=== PATIENT | male | born 1940 | race Caucasian/White ===

== ENCOUNTER → 2017-05-29 | Outpatient (REF) | payer MEDICARE ==
[2017-05-29 13:49] LABS: RETIC HEMOGLOBIN EQUIVALENT 31.9 pg (24-36); RETICULOCYTE # 70.5 10^9/L (17-77); RETICULOCYTE % 1.9 % (0.5-1.5)
[2017-05-29 13:58] LABS: HEMATOCRIT 33.4 % (42.0-52.0)
[2017-05-29 13:59] LABS: FERRITIN 509 NG/ML (26-388); IRON (FE) 40 UG/DL (65-175)
[2017-05-29 14:00] LABS: SLIDE REVIEW Report; SOURCE PERIPHERAL SMEAR
[2017-05-29 14:21] LABS: HEPATITIS B SURFACE ANTIGEN NEGATIVE (NEGATIVE); PERCENT SATURATION 18.1 % (19.7-50.0); TOTAL IRON BINDING CAPACITY 221 UG/DL (250-450)
[2017-05-29 14:46] LABS: HEPATITIS B CORE ANTIBODY IGM NEGATIVE (NEGATIVE)
[2017-05-29 16:38] LABS: HEPATITIS C VIRUS ABY INDEX 0.3 INDEX (<0.8)
[2017-06-02 00:07] LABS: SOLUBLE TRANSFERRIN RECEPTOR 30.8 nmol/L (12.2-27.3)
[2017-06-02 00:07] LABS: ANTINUCLEAR ANTIBODIES DIRECT Negative (Negative); EBV AB TO NUCLEAR ANTIGEN >600.0 U/mL (0.0-17.9); EBV VIRAL CAPSID AG IgM <36.0 U/mL (0.0-35.9); HOMOCYST(E)INE SERUM 15.9 umol/L (0.0-15.0); METHYLMALONIC ACID 234 nmol/L (0-378)
[2017-06-02 10:49] LABS: PRETREATED FOLATE FOR RBCFOL 6.8 NG/ML; RBC FOLATE 427.5 NG/ML (280-791)
== END ==
LOC: M LAB REF 13:21
DX: R16.1 Splenomegaly, not elsewhere classified (principal)
CPT/HCPCS: 83550

== ENCOUNTER → 2017-06-08 | Outpatient (REF) | payer MEDICARE ==
[2017-06-08 13:56] LABS: APPEARANCE, URINE HAZY (CLEAR); BACTERIA, URINE AUTO NEGATIVE (NEGATIVE); BILIRUBIN, URINE AUTO NEGATIVE (NEGATIVE); BLOOD, URINE BLOOD NEGATIVE (NEGATIVE); CALCIUM OXALATE CRYSTALS SMALL; COLOR, URINE YELLOW (YELLOW); GLUCOSE, URINE (UA) AUTO NEGATIVE (NEGATIVE); KETONE, URINE AUTO NEGATIVE (NEGATIVE); LEUKOCYTE ESTERASE, URINE AUTO NEGATIVE (NEGATIVE); MUCUS, URINE SMALL (NEGATIVE); NITRITE, URINE AUTO NEGATIVE (NEGATIVE); PROTEIN, URINE AUTO NEGATIVE (NEGATIVE); RBC, URINE AUTO 0 /HPF (0-3); SPECIFIC GRAVITY URINE AUTO 1.021 (1.002-1.035); SQUAMOUS EPITHELIAL CELL UR AU 0 /HPF (0-6); WBC, URINE AUTO 2 /HPF (0-3)
[2017-06-09 10:56] LABS: TOTAL PROTEIN 7.1 GM/DL (6.4-8.2)
[2017-06-09 11:52] LABS: IMMUNOGLOBULIN A 73.4 MG/DL (70-400); IMMUNOGLOBULIN G 1890 MG/DL (681-1648); IMMUNOGLOBULIN M 52.4 MG/DL (40-230)
[2017-06-10 00:06] LABS: FREE KAPPA LIGHT CHAINS SERUM 15.8 mg/L (3.3-19.4); FREE LAMBDA LIGHT CHAINS SERUM 130.4 mg/L (5.7-26.3); KAPPA/LAMBDA RATIO SERUM 0.12 (0.26-1.65)
[2017-06-10 09:56] LABS: ALBUMIN 2.91 GM/DL (3.29-5.55); ALPHA-1-GLOBULIN % 9.8 % (2.9-4.9); ALPHA-2-GLOBULINS 1.04 GM/DL (0.42-0.99); ALPHA-2-GLOBULINS % 14.7 % (7.1-11.8); BETA-1-GLOBULINS 0.39 GM/DL (0.28-0.60); BETA-1-GLOBULINS % 5.5 % (4.7-7.2); BETA-2-GLOBULINS 0.25 GM/DL (0.19-0.55); BETA-2-GLOBULINS % 3.5 % (3.2-6.5); GAMMA GLOBULIN % 25.5 % (11.1-18.8); GAMMA GLOBULINS 1.81 GM/DL (0.65-1.58)
[2017-06-10 10:07] LABS: IMMUNOTYPING SERUM IGG ABNORMAL (NORMAL); IMMUNOTYPING SERUM LAMBDA ABNORMAL (NORMAL)
== END ==
LOC: M LAB REF 12:41
DX: R16.1 Splenomegaly, not elsewhere classified (principal); R16.0 Hepatomegaly, not elsewhere classified; D64.9 Anemia, unspecified
CPT/HCPCS: 84165

== ENCOUNTER → 2017-07-23 | Outpatient (REF) | payer MEDICARE ==
[2017-07-23 14:06] LABS: FERRITIN 951 NG/ML (26-388); IRON (FE) 38 UG/DL (65-175); TOTAL IRON BINDING CAPACITY 173 UG/DL (250-450)
== END ==
LOC: M LAB REF 13:22
DX: R16.1 Splenomegaly, not elsewhere classified (principal); R16.0 Hepatomegaly, not elsewhere classified; D64.9 Anemia, unspecified
CPT/HCPCS: 83550

== ENCOUNTER → 2017-09-08 | Outpatient (CLI) | payer MEDICARE ==
[2017-09-09 12:00] LABS: HEPATITIS B SURFACE ANTIBODY NEGATIVE (POSITIVE)
[2017-09-09 12:17] LABS: HEPATITIS A ANTIBODY IGM NEGATIVE (NEGATIVE)
[2017-09-10 00:09] LABS: ANTI-MITOCHONDRIAL ANTIBODY 18.5 Units (0.0-20.0); ANTINUCLEAR ANTIBODIES DIRECT Negative (Negative); HEPATITIS A IgG TOTAL Negative (Negative); LIVER-KIDNEY MICROSOMAL ABY 7.4 Units (0.0-20.0)
[2017-09-10 00:09] LABS: ANTI-SMOOTH MUSCLE ANTIBODY 67 Units (0-19)
== END ==
LOC: M RAD 07:09
DX: R94.5 Abnormal results of liver function studies (principal); K76.0 Fatty (change of) liver, not elsewhere classified; N28.1 Cyst of kidney, acquired; R16.0 Hepatomegaly, not elsewhere classified; K82.8 Other specified diseases of gallbladder
CPT/HCPCS: 76705

== ENCOUNTER → 2018-04-01 | Outpatient (CLI) | payer MEDICARE ==
[~2018-04-01] MED LIST: ASPI1TAB PO; GASTROGRAFIN SOLUTION 30ML (Q9963) As Ordered ONE; IRON27TA2 PO; ISOVUE-370 76% 100ML VIAL (Q9967) As Ordered ONE; LEVO100T5 OR; METO1TAB87 OR; STOO100C PO; VITA500064 PO
--- NOTE | 2018-04-01 16:53 | REP ---
CT Head without and with contrast HISTORY: Non-Hodgkins lymphoma CONTRAST: Isovue 370 100 ml COMPARISON: None Areas of decreased attenuation are present in the periventricular white matter. This represents small-vessel ischemic disease. There is no intraparenchymal hemorrhage or midline shift. The ventricular system and cortical sulci are dilated consistent with minimal volume loss. There is no extra cerebral collection. Small 4 mm meningioma is present arising from the right side of the anterior inferior falx. The visualized sinuses are clear. Impression: 1. Small vessel ischemic disease. 2. Minimal volume loss. 3. There is a small 4 mm anterior cranial fossa meningioma. Electronically Signed by Jorge Luis Neely MD 04/01/2018 04:44 P
--- NOTE | 2018-04-01 16:55 | REP ---
CT of the chest with IV contrast for non-Hodgkin's lymphoma: There are no comparison studies. There is no mediastinal, hilar or axillary lymph node enlargement. There is atelectasis in the lower lobes bilaterally. No lung masses or nodules are identified. There are no pleural effusions. There are old healed fractures of the right first second and third ribs. There is deformity of the right fourth rib which could be post-traumatic or congenital. There is focal pleural thickening adjacent to the rib fractures, likely fibrosis. Thoracic aorta is unremarkable. Cardiac size is normal. There is calcified atheroma in the coronary arteries. There is no pericardial effusion. No lytic, blastic or destructive skeletal changes are identified. There are calcified granulomas in the left hilus. There are calcified granulomas in the spleen. Liver and spleen appear enlarged. Impression: Hepato splenomegaly. No adenopathy. The right rib changes as described, likely post-traumatic. No lung masses or nodules. No pleural effusions. Electronically Signed by Rangel Brownlee MD 04/01/2018 04:46 P
--- NOTE | 2018-04-01 17:01 | REP ---
CT of the abdomen pelvis with IV and oral contrast dual phase imaging: Imaging of the abdomen pelvis is performed during the arterial phase of enhancement. Scanning is repeated through the liver and spleen and during the equilibrium phase of enhancement. There is hepato splenomegaly. There are multiple splenic calcified granulomas. There are no focal splenic or hepatic masses. The gallbladder and pancreas are unremarkable. The adrenals are unremarkable. There are several small Bosniak type 1 simple cysts in the kidneys bilaterally. There are no renal solid masses or hydronephrosis. There are parapelvic cysts in the left kidney. There is abdominal aortic aneurysm with an endovascular stent. No evidence of stent leakage. No periaortic hematoma. The bowel and mesentery are unremarkable. There is no mesenteric or retroperitoneal adenopathy. Pelvis: There is no pelvic adenopathy or ascites. The bladder is unremarkable. There are no lytic, blastic or destructive skeletal changes. There is degenerative disc disease in the lumbar spine L5 S1. Impression: No adenopathy or ascites. Hepato splenomegaly. Splenic calcified granulomas. Abdominal aortic aneurysm with an endovascular stent. Electronically Signed by Rangel Brownlee MD 04/01/2018 04:53 P
--- NOTE | 2018-04-01 18:17 | REP ---
CT NECK WITH CONTRAST: HISTORY: Non-Hodgkin lymphoma. CONTRAST: Isovue-370 100 mL. Calcifications are present in the tonsils. This is secondary to previous inflammatory disease. The naso-, marilyn-, and hypopharynx, larynx, and subglottic trachea are otherwise normal in appearance. The salivary and thyroid glands are normal in size and density. Small lymph nodes less than 1 cm in size are present in the internal jugular chains, posterior triangles and submandibular areas. Atherosclerotic calcification is present at the carotid bifurcations. Degenerative change is present in the cervical spine. The lung apices are clear. The visualized sinuses are clear. IMPRESSION:There is no neck mass or adenopathy. Electronically Signed by Jorge Luis Neely MD 04/02/2018 08:22 A
== END ==
LOC: M RAD 14:31
PROVIDERS: ATTEND Internal Medicine Medical Oncology
DX: C85.90 Non-Hodgkin lymphoma, unspecified, unspecified site (principal); R16.1 Splenomegaly, not elsewhere classified; D72.89 Other specified disorders of white blood cells; N28.1 Cyst of kidney, acquired; Z95.828 Presence of other vascular implants and grafts
CPT/HCPCS: 70470; 70491; 71260; 74177; Q9963; Q9967

== ENCOUNTER → 2018-05-07 | Outpatient (REF) | payer MEDICARE ==
[~2018-05-07] MED LIST changes: -ASPI1TAB PO; +ASPI81TA26 PO; -GASTROGRAFIN SOLUTION 30ML (Q9963) As Ordered ONE; -ISOVUE-370 76% 100ML VIAL (Q9967) As Ordered ONE
== END ==
LOC: M SFHCPLAZ 09:58
PROVIDERS: ATTEND Dermatology
DX: L57.0 Actinic keratosis (principal); L83 Acanthosis nigricans

== ENCOUNTER → 2018-06-29 | Outpatient (REF) | payer MEDICARE ==
[~2018-06-29] MED LIST changes: +LASI40TA9 PO
== END ==
LOC: M SFHCPLAZ 20:11
PROVIDERS: ATTEND Dermatology
DX: L85.9 Epidermal thickening, unspecified (principal); L90.5 Scar conditions and fibrosis of skin
CPT/HCPCS: 11602; 11900; 13101; 88305; J3301

== ENCOUNTER 2018-08-26 10:45 | Observation (INO) | payer MEDICARE ==
[~2018-08-26] VITALS: Ht 188 cm; Wt 93.4 kg
[~2018-08-26 10:45] MED LIST changes: -LEVO100T5 OR; +LEVO100T5 PO; +MM S100C PO; -STOO100C PO
[2018-08-26 11:42] LABS: HEMATOCRIT 38.2 % (42.0-52.0); HEMOGLOBIN 12.2 g/dl (13.5-17.5); MEAN CORPUSCULAR HEMOGLOBIN 29.7 pg (27.0-33.0); MEAN CORPUSCULAR HGB CONC 31.9 g/dl (32.0-36.5); MEAN CORPUSCULAR VOLUME 92.9 fl (80.0-96.0); PLATELET COUNT, AUTOMATED 144 10^3/uL (150-450); RED BLOOD COUNT 4.11 10^6/uL (4.30-6.10); WHITE BLOOD COUNT 5.5 10^3/uL (4.0-10.0)
--- NOTE | 2018-08-26 11:50 | REP ---
CT BRAIN WITHOUT CONTRAST: HISTORY: Altered mental status. COMPARISON BRAIN CT STUDY: April 01, 2018. This prior study showed a small enhancing 4 mm meningioma in the base of the falx on the right side in the anterior cranial fossa. CT FINDINGS: Preliminary digital payroll accounting manager radiograph is unremarkable. Bone window settings show an intact calvarium. Visualized paranasal sinuses are clear. Heavy vascular calcifications again seen in the distal carotid arteries and to some degree in the distal vertebral circulation, as before. The previously noted 4 mm right anterior fossa meningioma is barely visualized on this noncontrast study. There is no evidence that it has enlarged. There is diffuse cerebral atrophy. There is no evidence of intracranial hemorrhage. No extra-axial fluid collection is seen. No mass, infarct, or midline shift is observed. IMPRESSION: Diffuse atrophy and vascular calcification, unchanged. The previously identified 4 mm falx meningioma in the right anterior cranial fossa is barely visualized today. It does not appear to have changed. Electronically Signed by Tye Dillard MD 08/26/2018 05:04 P
--- NOTE | 2018-08-26 11:51 | REP ---
PORTABLE CHEST X-RAY: SINGLE VIEW. HISTORY: Altered mental status. COMPARISON STUDY: July 02, 2017 FINDINGS: EKG monitoring electrodes overlie the chest. There is a granulomatous calcification in the left lung. There is chronic pleural thickening in the right upper lung zone. This is unchanged. The lung bases are clear. No acute infiltrate is seen. Heart is not enlarged. Median sternotomy wires and mediastinal clips are noted. IMPRESSION: No active cardiopulmonary disease. Prior sternotomy. Electronically Signed by Tye Dillard MD 08/26/2018 05:04 P
[2018-08-26 12:10] LABS: ALBUMIN 2.4 GM/DL (3.2-5.2); BILIRUBIN,DIRECT 0.1 MG/DL (0.0-0.2); BILIRUBIN,TOTAL 0.2 MG/DL (0.2-1.0); CALCIUM LEVEL 8.1 MG/DL (8.8-10.2); CK-MB VALUE MASS 2.5 NG/ML (<3.6); CREATININE FOR GFR 1.24 MG/DL (0.70-1.30); GLOMERULAR FILTRATION RATE 59.9 (>42); MB/CK RELATIVE INDEX 4.46 (< OR =4); POTASSIUM SERUM 4.9 MEQ/L (3.5-5.1); THYROID STIMULATING HORMONE 1.54 uIU/ML (0.358-3.740); TOTAL PROTEIN 7.5 GM/DL (6.4-8.2); TROPONIN I 0.13 NG/ML (< 0.10)
[2018-08-26 12:35] LABS: ATYPICAL LYMPH 2 % (0-5); EOSINOPHILS 1 % (0-5); LYMPHOCYTES 16 % (16-52); MONOCYTES 4 % (0-8); NEUTROPHILS 76 % (35-75); PLATELET ESTIMATE DECREASED (NORMAL)
[2018-08-26 12:38] LABS: ANISOCYTOSIS 1+
[2018-08-26 12:39] LABS: OVALOCYTES 1+; POIKILOCYTOSIS 1+
[2018-08-26] MEDS ORDERED: NS 1,000 ML IV SCH (15:30)
[2018-08-26] MEDS ORDERED: QC A650T3 PO (16:34)
--- NOTE | 2018-08-26 19:10 | HPEPDOC ---
General Date of Admission 08/26/2018 Date of Service: Aug 26, 2018 Chief Complaint The patient is a 78-year-old male admitted with a reason for visit of General Illness. Source: Patient, Family, Old records Exam Limitations: Hard of hearing, Mild cognitive slowing Timing/Duration: Changing over time Associated Symptoms: Loss of appetite, Nausea, Weakness, Dizziness, Mechanical fall History of Present Illness This is a 78-year-old male who carries a diagnosis of non-Hodgkin's lymphoma. He last finished about of chemotherapy. 6 weeks ago. He is on maintenance therapy with Rituxan. Over the past week he has noted remarkable fatigue. He's also been dizzy. Reports a loss of appetite and queasiness but no vomiting. He's had overall body aches. He describes himself as being so fatigued that he's been sleeping up to 20 hours a day. Family reports him having frequent falls at home. Also note that at times he has been confused. Of interest, patient appears to be more alert and awake upon arrival to the emergency room. Home Medications Scheduled Ferrous Gluconate (Iron) 27 Mg Tab, 27 MG PO QPM, (Reported) Furosemide (Lasix) 40 Mg Tablet, 40 MG PO DAILY, (Reported) Levothyroxine Sodium (Levothyroxine Sodium) 100 Mcg Tab, 100 MCG PO DAILY, (Reported) Scheduled PRN Acetaminophen (Acetaminophen 8 Hour) 650 Mg Tablet.er, 650 MG PO TID PRN for PAIN, (Reported) Allergies Coded Allergies: cortisone (Verified Allergy, Unknown, 05/13/18) Past Medical History Medical History Past medical history is remarkable for non-Hodgkin's lymphoma for which he has undergone chemotherapy and is on maintenance therapy with Rituxan. Hypothyroidism. Abdominal aortic aneurysm for which he is status post endovascular repair. IgG lambda monoclonal gammopathy. History of CVA. Coronary artery disease for which he is status post coronary artery bypass graft surgery. Diverticular disease. Dyslipidemia. Obstructive sleep apnea. It is not clear whether he sleeps with a CPAP mask. History of gallstones. Macular degeneration. Osteoarthritis Iron deficiency/folic acid deficiency anemia Surgical History Surgical: History includes the aforementioned endovascular repair of his abdominal aortic aneurysm, appendectomy, unspecified shoulder surgery, coronary artery bypass graft surgery Family History Significant Family History: Unable to assess Social History * Smoker: pipe (lifelong and current) Alcohol: Denies Drugs: denies Pets in the home: Dog(s), Cat(s) Psychosocial History: No pertinent psych hx A-FIB/CHADSVASC A-FIB History Current/History of A-Fib/PAF?: No Current PO Anticoag Therapy: No Review of Systems Other systems 10 systems review is otherwise negative except as stated in the brief presentation Physical Examination General Exam: Positive: Alert Eye Exam: Positive: PERRLA, Conjunctiva & lids normal ENT Exam: Positive: Atraumatic, Mucous membr. 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) Neck Exam: Positive: Supple Chest Exam: Positive: Clear to auscultation, Normal air movement Heart Exam: Positive: Rate Normal, Regular Rhythm Abdomen Exam: Positive: Normal bowel sounds, Soft Extremity Exam: Positive: Normal pulses Skin Exam: Positive: Nl turgor and temperature Neuro Exam: Positive: Normal Speech, Cranial Nerves 3-12 NL Psych Exam: Positive: Mental status NL, Oriented x 3 Vital Signs Vital Signs Date Time Temp Pulse Resp B/P (MAP) Pulse Ox O2 Delivery O2 Flow Rate FiO2 08/26/18 18:44 96.7 76 18 127/67 (87) 98 08/26/18 10:47 Room Air Laboratory Data Labs 24H Laboratory Tests 2 08/26/18 11:23: Nucleated Red Blood Cells % (auto) 0.0, Neutrophils 76H, Band Neutrophils 1, Lymphocytes (Manual) 16, Monocytes (Manual) 4, Eosinophils (Manual) 1, Atypical Lymphocytes 2, Platelet Estimate DECREASED, Poikilocytosis 1+, Anisocytosis 1+, Ovalocytes 1+, Bedside Glucose (Misc Panel) 106, Anion Gap 7L, Glomerular Filtration Rate 59.9, Osmolality 293, Lactic Acid Level 1.6, Calcium Level 8.1L, Aspartate Amino Transf (AST/SGOT) 48H, Alanine Aminotransferase (ALT/SGPT) 33, Alkaline Phosphatase 78, Total Bilirubin 0.2, Direct Bilirubin 0.1, Ammonia < 10, Total Creatine Kinase 56, Creatine Kinase MB 2.5, Creatine Kinase MB Relative Index 4.46H, Troponin I 0.13H, Total Protein 7.5, Albumin 2.4L, Albumin/Globulin Ratio 0.47L, Thyroid Stimulating Hormone (TSH) 1.540 08/26/18 14:39: Urine Color YELLOW, Urine Appearance HAZY, Urine pH 5.0, Urine Specific [place] 1.021, Urine Protein 1+H, Urine Glucose (UA) NEGATIVE, Urine Ketones NEGATIVE, Urine Blood NEGATIVE, Urine Nitrite NEGATIVE, Urine Bilirubin NEGATIVE, Urine Urobilinogen 0.2, Urine Leukocyte Esterase NEGATIVE, Urine WBC (Auto) 0, Urine RBC (Auto) 0, Urine Hyaline Casts (Auto) 1, Urine Bacteria (Auto) NEGATIVE, Urine Squamous Epithelial Cells 0, Urine Mucus (Auto) SMALL, Urine Sperm (Auto) CBC/BMP Laboratory Tests 08/26/18 11:23 Red Blood Count 4.11 L, Mean Corpuscular Volume 92.9, Mean Corpuscular Hemoglobin 29.7, Mean Corpuscular Hemoglobin Concent 31.9 L, Red Cell Distribution Width 15.2 H Microbiology Microbiology 08/26/18 Blood Culture, Received Pending 08/26/18 Blood Culture, Received Pending Assessment/Plan 1. Fatigue/weakness/frequent fallsthis is been attributed to a number of causes. Some have felt that it was due to his medication. Patient is also on Lasix and he was said to be dizzy from that, although he has not exhibited hypotension. Others have said that he was in congestive heart failure and in fluid overload. The patient has not had any shortness of breath or peripheral edema, however. There is no documentation to be found in his medical record with echocardiogram or other cardiac studies of him having congestive heart failure. Plans are to hydrate him gently, given his elevated creatinine. We will also check orthostatics on this patient. I will hold his diuretics for the time being. 2. Frequent fallshe has not hit his head and he has not lost consciousness. Head CT does not show any acute injury, infarct or bleed. There is notable atrophy and a known 4 mm meningioma to the cranial fossa. Plans are to have the patient assessed by physical and occupational therapy services to determine if there is any gait instability. The patient is placed on observation status. If he remains hemodynamically stable. We anticipate he'll be able to be discharged home within less than 2 midnights. Plan / VTE VTE Prophylaxis Ordered?: Yes Plan IVF: Initiate Diet: Continue Current Therapy: PT, OT Anticipated Discharge: Home Advanced Directives: Do Not Resuscitate (DNR), Do Not Intubate (DNI) (the patient has stated that he didn't wish to be resuscitated. He does not want ever being intubated. His is his healthcare proxy. They report that they have a MOLST form.) PAUL CONCEPCION MD Aug 26, 2018 19:10
--- NOTE | 2018-08-26 19:27 | ECGEPIP ---
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
[2018-08-26 20:22] VITALS: BP 124/61
[2018-08-26 20:23] VITALS: BP_SYST 116; BP_SYST 117; BP_DIAS 58; BP_DIAS 59
[2018-08-26] MEDS: HEPARIN SOD (PORCINE) 5000 UNITS/ML VIAL SC SCH (23:00)
[2018-08-27 06:00] VITALS: BP_SYST 113; BP_SYST 127; BP_SYST 138; BP_DIAS 55; BP_DIAS 60
[2018-08-27] MEDS: LEVOTHYROXINE 100MCG TABLET (0.1MG) PO SCH (06:00)
[2018-08-27 06:51] LABS: HEMOGLOBIN 10.3 g/dl (13.5-17.5); MEAN CORPUSCULAR HEMOGLOBIN 28.9 pg (27.0-33.0); MEAN CORPUSCULAR HGB CONC 32.2 g/dl (32.0-36.5); MEAN CORPUSCULAR VOLUME 89.9 fl (80.0-96.0); PLATELET COUNT, AUTOMATED 137 10^3/uL (150-450); RED BLOOD COUNT 3.56 10^6/uL (4.30-6.10); WHITE BLOOD COUNT 5.9 10^3/uL (4.0-10.0)
[2018-08-27 07:23] LABS: BLOOD UREA NITROGEN 25 MG/DL (7-18); CALCIUM LEVEL 8.1 MG/DL (8.8-10.2); CARBON DIOXIDE LEVEL 26 MEQ/L (21-32); CHLORIDE LEVEL 109 MEQ/L (98-107); CK-MB VALUE MASS 2.4 NG/ML (<3.6); CPK CREATINE PHOSPHOKINASE 54 U/L (39-308); CREATININE FOR GFR 1.22 MG/DL (0.70-1.30); GLOMERULAR FILTRATION RATE > 60.0 (>42); GLUCOSE, FASTING 109 MG/DL (70-100); MAGNESIUM LEVEL 2.2 MG/DL (1.8-2.4); MB/CK RELATIVE INDEX 4.44 (< OR =4); POTASSIUM SERUM 4.5 MEQ/L (3.5-5.1); SODIUM LEVEL 140 MEQ/L (136-145); TROPONIN I 0.25 NG/ML (< 0.10)
[2018-08-27] MEDS: HEPARIN SOD (PORCINE) 5000 UNITS/ML VIAL SC SCH ×2 (09:52→20:30)
[2018-08-27 14:37] VITALS: BP 110/60
--- NOTE | 2018-08-27 16:22 | IPNPDOC ---
Text Note Date of Service The patient was seen on 08/27/18. NOTE The patient appears to have made remarkable improvement. His extreme fatigue and dizziness are resolved. His appetite has returned. He is also no longer confused. The patient has underlying non-Hodgkin's lymphoma for which he has been on maintenance chemotherapy with Rituxan. 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 Cardiovascular: Regular rate and rhythm with a normal S1 and S2 and no appreciable murmur. Respiratory: Clear to auscultation, no cough. Abdomen: Soft, nontender, nondistended, normal bowel tones. Extremities: No peripheral edema, pedal pulses are readily palpable. Neuro: No focal neuromotor or sensory deficits. Psych: Cognition, judgment, insight and memory are generally appropriate for his age ASSESSMENT/PLAN: 1. Fatigue/weakness/frequent fallsthis has been attributed to a number of causes. Some have felt that it was due to his medication. Patient is also on Lasix and he was said to be dizzy from that, although he has not exhibited hypotension. Others have said that he was in congestive heart failure and in fluid overload. The patient has not had any shortness of breath or peripheral edema, however. There is no documentation to be found in his medical record with echocardiogram or other cardiac studies of him having congestive heart failure. Plans are to hydrate him gently, given his elevated creatinine. We have held his Lasix. He has responded well to conservative therapy. 2. Frequent fallshe has not hit his head and he has not lost consciousness. Head CT does not show any acute injury, infarct or bleed. There is notable atrophy and a known 4 mm meningioma to the cranial fossa. Plans are to have the patient assessed by physical and occupational therapy services to determine if there is any gait instability. 3. Troponinpatient has troponin of 0.25. He has not had any chest pain or shortness of breath. EKG does not show any changes. Arrangements will be made for the patient to follow-up with cardiology on an outpatient basis. The patient is placed on observation status. If he remains hemodynamically stable. We anticipate he'll be able to be discharged home within less than 2 midnights. VS,Serge, I+O VS, Serge, I+O Laboratory Tests 08/27/18 06:24 Red Blood Count 3.56 L, Mean Corpuscular Volume 89.9, Mean Corpuscular Hemoglobin 28.9, Mean Corpuscular Hemoglobin Concent 32.2, Red Cell Distribution Width 15.3 H, Calcium Level 8.1 L, Total Creatine Kinase 54 Vital Signs Date Time Temp Pulse Resp B/P (MAP) Pulse Ox O2 Delivery O2 Flow Rate FiO2 08/27/18 14:37 98.3 81 20 110/60 (77) 95 08/26/18 10:47 Room Air I&O- Last 24 Hours up to 6 AM 08/27/18 06:00 Intake Total 360 ml Output Total 300 ml Balance 60 ml PAUL CONCEPCION MD Aug 27, 2018 16:22
[2018-08-27 22:00] VITALS: BP 126/70
[2018-08-28 06:00] VITALS: BP 107/57
[2018-08-28] MEDS: LEVOTHYROXINE 100MCG TABLET (0.1MG) PO SCH (06:14)
[2018-08-28] MEDS: HEPARIN SOD (PORCINE) 5000 UNITS/ML VIAL SC SCH (09:15)
--- NOTE | 2018-08-28 21:18 | DS.PDOC ---
Discharge Summary General Date of Admission Aug 26, 2018 at 18:10 Date of Discharge 08/28/2018 Discharge Summary PROCEDURES PERFORMED DURING STAY: None. ADMITTING DIAGNOSES: 1. Metabolic encephalopathy, orthostatic hypotension. DISCHARGE DIAGNOSES: 1. Metabolic encephalopathy, resolved, orthostatic hypotension, resolved, non- Hodgkin's lymphoma,Hypothyroidism, iron deficiency anemia, dyslipidemia, obstructive sleep apnea, osteoarthritis, history of CVA, history of abdominal aortic aneurysm repair, for which she is status post endovascular surgery, coronary artery disease for which she has a history of coronary artery bypass graft surgery. COMPLICATIONS/CHIEF COMPLAINT: Falls,Weakness. HISTORY OF PRESENT ILLNESS/HOSPITAL COURSE: This is a 78-year-old male with a diagnosis of non-Hodgkin's lymphoma. He last finished a round of chemotherapy 6 weeks ago. He is on maintenance therapy with Rituxan. Over the past week prior to admission, he had noted remarkable fatigue, dizziness, loss of appetite and queasiness. He also had overall body aches. He describes his fatigue is sleeping up to 20 hours a day. He was also having frequent falls and confusion at home. Symptoms were attributed to him receiving Lasix. Patient was presumed to perhaps have metabolic encephalopathy and possible orthostatic hypotension from excessive diuresis. Patient was admitted to the medical floor. He was no longer maintained on Lasix and did receive IV hydration with fluids. He became much more awake and alert, fairly rapidly. His dizziness resolved. He also regained an appetite. The patient was evaluated by physical and occupational therapy services. Initially concern was raised that he might need home health services, but he actually did quite well. He was felt to be sufficient to be discharged to home and follow-up with his oncologist and primary care provider. We also discussed that Rituxan can cause fatigue, muscle aches and nausea.. DISCHARGE MEDICATIONS: Please see below. ALLERGIES: Please see below. PHYSICAL EXAMINATION ON DISCHARGE: VITAL SIGNS: Please see below. 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 Cardiovascular: Regular rate and rhythm with a normal S1 and S2 and no appreciable murmur. Respiratory: Clear to auscultation, no cough. Abdomen: Soft, nontender, nondistended, normal bowel tones. Extremities: No peripheral edema, pedal pulses are readily palpable. Neuro: No focal neuromotor or sensory deficits. Psych: Cognition, judgment, insight and memory are generally appropriate for his age LABORATORY DATA: Please see below. IMAGING: PROGNOSIS: ACTIVITY: As tolerated. DIET: As tolerated DISCHARGE PLAN: The patient is discharged to home. He will follow-up with his [facility] care provider within one week. He will also be following up with his oncologist. He is not to resume Lasix. DISPOSITION: Home Health Service, patient declined DISCHARGE INSTRUCTIONS: 1. . ITEMS TO FOLLOWUP ON ON OUTPATIENT: 1. . DISCHARGE CONDITION: Stable. TIME SPENT ON DISCHARGE: Greater than 35 minutes. Vital Signs/I&Os Vital Signs Date Time Temp Pulse Resp B/P (MAP) Pulse Ox O2 Delivery O2 Flow Rate FiO2 08/28/18 06:00 98.0 72 18 107/57 (74) 93 08/26/18 10:47 Room Air I&O- Last 24 Hours up to 6 AM 08/28/18 05:59 Intake Total 1440 ml Output Total 850 ml Balance 590 ml Microbiology Microbiology 08/26/18 Blood Culture - Preliminary, Resulted No Growth after 48 hours. All Specime... 08/26/18 Blood Culture - Preliminary, Resulted No Growth after 48 hours. All Specime... Discharge Medications Scheduled Ferrous Gluconate (Iron) 27 Mg Tab, 27 MG PO QPM, (Reported) Levothyroxine Sodium (Levothyroxine Sodium) 100 Mcg Tab, 100 MCG PO DAILY, (Reported) Scheduled PRN Acetaminophen (Acetaminophen 8 Hour) 650 Mg Tablet.er, 650 MG PO TID PRN for PAIN, (Reported) Allergies Coded Allergies: cortisone (Verified Allergy, Unknown, 05/13/18) PAUL CONCEPCION MD Aug 28, 2018 21:18
== END 2018-08-28 11:00 | disposition home health service (06) ==
LOC: M ED 10:45 → M ED INP 18:10 → M MS5PR 20:15
PROVIDERS: ADMIT Internal Medicine; ATTEND Internal Medicine
DX: G93.41 Metabolic encephalopathy (principal); I95.1 Orthostatic hypotension; C85.90 Non-Hodgkin lymphoma, unspecified, unspecified site; E03.9 Hypothyroidism, unspecified; D50.9 Iron deficiency anemia, unspecified; E78.5 Hyperlipidemia, unspecified; G47.33 Obstructive sleep apnea (adult) (pediatric); M19.90 Unspecified osteoarthritis, unspecified site; Z86.73 Personal history of transient ischemic attack (TIA), and cerebral infarction without residual deficits; Z86.79 Personal history of other diseases of the circulatory system; I25.10 Atherosclerotic heart disease of native coronary artery without angina pectoris; Z95.1 Presence of aortocoronary bypass graft; R53.1 Weakness; Z91.81 History of falling; R53.83 Other fatigue; D47.2 Monoclonal gammopathy; H35.30 Unspecified macular degeneration; D52.9 Folate deficiency anemia, unspecified; Z79.899 Other long term (current) drug therapy; Z88.8 Allergy status to other drugs, medicaments and biological substances; F17.290 Nicotine dependence, other tobacco product, uncomplicated
CPT/HCPCS: 36415; 70450; 71045; 80048; 80076; 81001; 82140; 82550; 82553; 83605; 83735; 83930; 84443; 84484; 85025; 85027; 87040; 93005; 93041; 94760; 96372; 97161; 99285; G0378

== ENCOUNTER → 2018-09-23 | Outpatient (CLI) | payer MEDICARE ==
[~2018-09-23] MED LIST changes: +CIPR500T3 PO; +COLA100C5 PO; +FERR325T16 PO; +LEVA750T7 PO; +MECL12.589 PO; +METO1TAB87 PO; +POTA10TA17 PO; +QC A650T3 PO
--- NOTE | 2018-09-23 08:47 | ECGEPIP ---
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
[2018-09-23 09:24] LABS: HEMATOCRIT 33.6 % (42.0-52.0); HEMOGLOBIN 10.5 g/dl (13.5-17.5); MEAN CORPUSCULAR HEMOGLOBIN 30.3 pg (27.0-33.0); MEAN CORPUSCULAR HGB CONC 31.3 g/dl (32.0-36.5); MEAN CORPUSCULAR VOLUME 96.8 fl (80.0-96.0); PLATELET COUNT, AUTOMATED 137 10^3/uL (150-450); RED BLOOD COUNT 3.47 10^6/uL (4.30-6.10); WHITE BLOOD COUNT 8.7 10^3/uL (4.0-10.0)
[2018-09-23 09:35] LABS: HEMOGLOBIN A1c 5.7 %
[2018-09-23 09:44] LABS: ALBUMIN 2.6 GM/DL (3.2-5.2); ALT/SGPT 22 U/L (12-78); BILIRUBIN,TOTAL 0.5 MG/DL (0.2-1.0); BLOOD UREA NITROGEN 22 MG/DL (7-18); CALCIUM LEVEL 8.6 MG/DL (8.8-10.2); CARBON DIOXIDE LEVEL 30 MEQ/L (21-32); CHLORIDE LEVEL 104 MEQ/L (98-107); CHOLESTEROL LEVEL 170 MG/DL (<200); CHOLESTEROL RISK RATIO 8.947 (<5); CREATININE FOR GFR 1.23 MG/DL (0.70-1.30); GLOMERULAR FILTRATION RATE > 60.0 (>42); GLUCOSE, FASTING 99 MG/DL (70-100); HDL CHOLESTEROL 19 MG/DL (>40); LDL CHOLESTEROL 128 MG/DL (<100); NON-HDL-C 151 MG/DL; POTASSIUM SERUM 5.1 MEQ/L (3.5-5.1); PROSTATIC SPECIFIC AG MONITOR 0.23 NG/ML (< 4.00); SODIUM LEVEL 138 MEQ/L (136-145); TOTAL PROTEIN 7.2 GM/DL (6.4-8.2); TRIGLYCERIDES LEVEL 114 MG/DL (<150)
--- NOTE | 2018-09-23 10:09 | REP ---
CHEST, TWO VIEWS: Two views of the chest are performed and compared to prior study of 02/26/2018 as well as other prior exams. There is mild stable bibasilar fibrotic change. No acute infiltrate is seen. The heart is normal in size. Mediastinal silhouette is unchanged. There are multiple sternal wires and mediastinal clips present. There is osteopenia with multiple stable mild compression deformities over the thoracic spine. IMPRESSION: Stable chronic findings with acute pulmonary disease. Electronically Signed by Rangel Kunz MD 09/23/2018 10:18 A
[2018-09-23 10:36] LABS: TOTAL 25(OH) VITAMIN D 36.3 NG/ML (30.0-100.0)
== END ==
LOC: M LAB 07:47
PROVIDERS: ATTEND Family Medicine
DX: I10 Essential (primary) hypertension (principal); R53.83 Other fatigue; E03.9 Hypothyroidism, unspecified; C85.90 Non-Hodgkin lymphoma, unspecified, unspecified site; M85.80 Other specified disorders of bone density and structure, unspecified site

== ENCOUNTER 2018-10-27 10:13 | Emergency (ER) | payer MEDICARE ==
[~2018-10-27] VITALS: Ht 190.5 cm; Wt 83.4 kg
[~2018-10-27 10:13] MED LIST changes: -CIPR500T3 PO; -COLA100C5 PO; -FERR325T16 PO; -LEVA750T7 PO; -MECL12.589 PO; -METO1TAB87 PO; -POTA10TA17 PO
[2018-10-27] MEDS ORDERED: COLA100C5 PO (10:32)
[2018-10-27] MEDS ORDERED: METO1TAB87 PO (10:32)
[2018-10-27 10:59] LABS: BASO % 0.5 % (0.0-1.0); EOS # 0.3 10^3/uL (0.0-0.5); EOS % 3.4 % (0.0-3.0); HEMATOCRIT 35.9 % (42.0-52.0); HEMOGLOBIN 11.2 g/dl (13.5-17.5); LYMPH # 1.1 10^3/uL (1.5-5.0); LYMPH % 13.9 % (24.0-44.0); MEAN CORPUSCULAR HGB CONC 31.2 g/dl (32.0-36.5); MEAN CORPUSCULAR VOLUME 96.2 fl (80.0-96.0); MONO # 0.6 10^3/uL (0.0-0.8); MONO % 7.1 % (0.0-5.0); NEUTROPHILS # 5.8 10^3/uL (1.5-8.5); PLATELET COUNT, AUTOMATED 136 10^3/uL (150-450); RED BLOOD COUNT 3.73 10^6/uL (4.30-6.10); WHITE BLOOD COUNT 7.9 10^3/uL (4.0-10.0)
[2018-10-27 11:22] LABS: CALCIUM LEVEL 8.6 MG/DL (8.8-10.2); CREATININE FOR GFR 1.33 MG/DL (0.70-1.30); GLOMERULAR FILTRATION RATE 55.2 (>42)
--- NOTE | 2018-10-27 12:07 | REP ---
PORTABLE CHEST X-RAY: Two views. HISTORY: Shortness of breath. COMPARISON STUDY: September 23, 2018. FINDINGS: EKG monitoring electrodes overlie the chest. Prior median sternotomy wires are seen. The lungs are symmetrically aerated. There are increased markings in the right base consistent with developing infiltrate. These appear to be new from comparison radiographs. Lung lora are otherwise clear. Heart is not enlarged. Pulmonary vasculature is not increased. IMPRESSION: Right lower lobe infiltrate. Prior sternotomy. Electronically Signed by Tye Dillard MD 10/27/2018 03:25 P
[2018-10-27 12:45] VITALS: O2SAT 96
[2018-10-27] MEDS ORDERED: LEVA750T7 PO (13:15)
[2018-10-27 13:26] VITALS: BP 91/50
--- NOTE | 2018-10-28 07:20 | ECGEPIP ---
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
== END 2018-10-27 13:35 | disposition home or self-care (01) ==
LOC: M ED 10:13
DX: J18.1 Lobar pneumonia, unspecified organism (principal); I95.9 Hypotension, unspecified; C85.90 Non-Hodgkin lymphoma, unspecified, unspecified site; I25.2 Old myocardial infarction; Z86.73 Personal history of transient ischemic attack (TIA), and cerebral infarction without residual deficits; Z87.891 Personal history of nicotine dependence; Z88.8 Allergy status to other drugs, medicaments and biological substances; Z79.899 Other long term (current) drug therapy

== ENCOUNTER 2019-01-22 10:19 | Inpatient (IN) | payer MEDICARE ==
[~2019-01-22] VITALS: Ht 190.5 cm; Wt 85.8 kg
[~2019-01-22 10:19] MED LIST changes: +CIPR500T3 PO; +COLA100C5 PO; +LEVA750T7 PO; +METO1TAB87 PO
--- NOTE | 2019-01-22 11:22 | REP ---
BILATERAL LOWER EXTREMITY DOPPLER VENOUS ULTRASOUND: 01/22/2019. Clinical history: Bilateral pedal edema. Comparison: None. Technique: The deep venous system of the bilateral lower extremities is evaluated with hernandez scale imaging, compression ultrasound, color imaging and duplex Doppler interrogation. Examination from the groin through the popliteal fossa into the proximal calf. Findings: There is full compressibility from the common femoral vein in the inguinal region through the popliteal vein on both sides. Color imaging confirms patency throughout the course of the deep venous system. There is respiratory variation and augmented flow at all levels. Impression: 1. No Doppler venous ultrasound evidence of DVT in the bilateral lower extremities. Electronically Signed by Carmine Argueta MD 01/22/2019 11:14 A
[2019-01-22 11:38] LABS: BASO % 0.3 % (0.0-1.0); EOS # 0.1 10^3/uL (0.0-0.5); EOS % 1.9 % (0.0-3.0); HEMATOCRIT 33.7 % (42.0-52.0); HEMOGLOBIN 10.3 g/dl (13.5-17.5); LYMPH # 1.1 10^3/uL (1.5-5.0); LYMPH % 14.9 % (24.0-44.0); MEAN CORPUSCULAR HGB CONC 30.6 g/dl (32.0-36.5); MEAN CORPUSCULAR VOLUME 94.9 fl (80.0-96.0); MONO # 0.6 10^3/uL (0.0-0.8); MONO % 7.5 % (0.0-5.0); NEUTROPHILS # 5.6 10^3/uL (1.5-8.5); NEUTROPHILS % 74.3 % (36.0-66.0); PLATELET COUNT, AUTOMATED 112 10^3/uL (150-450); RED BLOOD COUNT 3.55 10^6/uL (4.30-6.10); WHITE BLOOD COUNT 7.5 10^3/uL (4.0-10.0)
[2019-01-22 12:02] LABS: C REACTIVE PROTEIN QUANTITATIV 2.52 MG/DL (0.00-0.30); CALCIUM LEVEL 8.9 MG/DL (8.8-10.2); CREATININE FOR GFR 1.31 MG/DL (0.70-1.30); GLOMERULAR FILTRATION RATE 56.2 (>42)
--- NOTE | 2019-01-22 12:07 | REP ---
CHEST PA AND LATERAL: 01/22/2019. COMPARISON: Portable chest 10/27/2018, PA lateral 09/23/2018. CLINICAL HISTORY: Prior right lower lobe pneumonia. Abnormal breath sounds in the bilateral bases. FINDINGS: Lungs are well inflated. CP angles sharply defined without effusion. Some lateral pleural thickening right upper chest zone. This is unchanged. Some basilar subsegmental atelectatic or infiltrative change seen in the infrahilar region on the right. The more central and peripheral lower lung zone patchy atelectasis or infiltrate from the October study is resolved. There is no pleural effusion or lateral pleural thickening on the left. Heart size upper limits normal without specific chamber enlargement. The aorta and airway are intact. There is no widening of the mediastinum. I see no vascular redistribution or edema. Degenerative changes in the spine and shoulders. IMPRESSION: 1. Some infrahilar patchy atelectasis or infiltrate right lower lobe with clearing of the right base patchy atelectasis or infiltrate above the diaphragm centrally and peripherally on the previous portable chest. 2. Left lung clear. No effusion. 3. Some chronic right upper lateral pleural thickening likely post-traumatic. 4. Sternotomy wires and clips from CABG. Electronically Signed by Carmine Argueta MD 01/22/2019 07:54 P
[2019-01-22] MEDS ORDERED: ISOVUE-370 76% 100ML VIAL (Q9967) As Ordered ONE (14:17)
--- NOTE | 2019-01-22 15:29 | REP ---
CT ANGIOGRAM CHEST: 01/22/2019. COMPARISON: Chest x-ray 01/22/2019, CTA chest 04/01/2018. CLINICAL HISTORY: Elevated D-dimer, chronic pipe smoker. Non-Hodgkin lymphoma by history. TECHNIQUE: Bolus of 75 mL Isovue-370 scanning through the chest with CT pulmonary angiogram protocol and both coronal and sagittal standard and MIP reformats were provided. FINDINGS: The lung lora are well inflated. There is some chronic post-traumatic changes along the right mid lateral to posterolateral chest wall with pleural thickening and post-traumatic rib changes. There is dependent atelectatic change in the deep sulci and some subsegmental atelectasis deep sulcus left greater than right. No definite effusion. There is a bilobed 16.6 mm nodule deep sulcus left lower lobe with some adjacent minor atelectatic changes. Some atelectatic change in the medial basal segment of the right lower lobe is also noted. No other significant or new nodules or masses. I see no pneumothorax. Heart size not grossly enlarged. There is no pericardial thickening or effusion. Atherosclerotic calcifications at the aortic root, arch, and descending portion as well as some coronary artery calcifications. Sternotomy wires and clips in the mediastinum are noted. The main, right, and left pulmonary arteries and the mediastinum are without filling defects. Fullness of those central pulmonary arteries suggest pulmonary artery hypertension, likely on the basis of COPD. The lobar and visible segmental arteries are without filling defects. There is poor opacification of the medial basal segment of the right lower lobe pulmonary artery, but there is also some subtle motion artifact that makes this determination difficult. I cannot confidently include or exclude embolus in this region. To a lesser degree, subsegmental arteries in the left lower lobe and more peripherally in the right lower lobe are not as well seen as other segments and lobes. This also may be artifact. The bone windows show chronic post-traumatic changes right lateral and posterolateral ribs and no compression fractures in the thoracic spine, although there is some upper thoracic kyphosis. No acute compression deformity. Sternum, manubrium, medial clavicles, scapulae, and those portions of the humeral heads and shoulder joints notable only for arthritic change. That portion of upper abdomen included shows enlargement of the spleen which is only seen in part but consistent with his history of lymphoma. That portion of liver and gallbladder seen are without acute finding. Adrenal glands seen in part and unremarkable. No hiatal hernia. IMPRESSION: 1. No central or lobar pulmonary emboli seen. Most of the segmental arteries are visible and without filling defects, but the right lower lobe medial basal segment is not well depicted and other segments and lower lobes are difficult to evaluate due to some respiratory motion blur. One can neither diagnose or exclude pulmonary emboli in these vessels at this time. 2. Chronic post-traumatic changes ribs in the right mid to posterior lateral aspect with some pleural thickening. 3. A 16 mm nodule deep sulcus left lower lobe, new from previous study with some adjacent bibasilar atelectatic changes. No effusions. 4. Splenomegaly with the spleen only seen in part. No ascites in the upper abdomen. Electronically Signed by Carmine Argueta MD 01/22/2019 08:01 P
[2019-01-22] MEDS ORDERED: FERR325T16 PO (17:08)
[2019-01-22] MEDS ORDERED: FUROSEMIDE 40 MG/4 ML VIAL (J1940) IV ONE (18:00)
--- NOTE | 2019-01-22 18:28 | ECGEPIP ---
[facility] - ED Test Date: 2019-01-22 Pat Name: HALLE MYERS Department: Room: - Gender: Male [employer]: gulile : 1940 Requested By: OLAF STEVE PA-C. Order Number: [id number] Reading MD: Yenny Medina Measurements Intervals [place] Rate: 59 P: 91 [place]: 161 QRS: 1 QRSD: 141 T: 59 QT: 422 QTc: 419 Interpretive Statements SINUS BRADYCARDIA RIGHT BUNDLE BRANCH BLOCK MODERATE VOLTAGE CRITERIA FOR LVH, CONSIDER NORMAL VARIANT DECREASED RATE 10/27/18 Electronically Signed on 01-22-2019 18:28:31 EST by Yenny Medina
[2019-01-22 19:30] VITALS: BP 131/61
[2019-01-22] MEDS: HEPARIN SOD (PORCINE) 5000 UNITS/ML VIAL SC SCH (21:24)
[2019-01-22] MEDS: METOPROLOL TART 25 MG TABLET PO SCH (21:25)
--- NOTE | 2019-01-22 21:31 | HPEPDOC ---
General Date of Admission 01/22/19 Date of Service: Jan 22, 2019 Chief Complaint The patient is a 78-year-old male admitted with a reason for visit of Bilat Extremity Swelling, Weakness. 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, IgG lamda monoclonal gammopathy, Folic acid def anemia, Coronary artery disease and CABG 2012, arthritis, hypothyroidism, diverticulitis, macular degeneration, hyperlipidemia, obstructive sleep apnea on BIPAP, Periodic limb movement disorder, fatty liver, gallstones, endovascular repair for an abdominal aneurysm in June 2017, shoulder surgery, appendectomy and COPD, SCC of skin, Bilateral lower extremity venous stasis dermatitis, ACTINIC KERATOSES, SEBORRHEIC KERATOSES , LENTIGINES presented to the ED with swelling of legs for 1 day and increased SOB for 4 to 5 days for which he had been sleeping in his recliner. He also complained of chronic pain in his left buttock so that he cannot sit on hard surfaces and always carries a cushion with him. He also said that when he says down flat he coughs a lot. He used to use a BIPAP machine but has not used it for a year as he was chocking on it. In the ED he had a d dimer done which was elevated so there was a suspicion for PE . He had dopplers of both legs which were negative for DVT. Next he had a CT angio of the chest which did not show any PE in the main pulmonary trunk ,right or left pulmonary arteries. No central or lobar pulmonary emboli seen. Most of the segmental arteries are visi ble and without filling defects, but the right lower lobe medial basal segment is not well depicted and other segments and lower lobes are difficult to evaluate due to some respiratory motion blur. One can neither diagnose or exclude pulmonary emboli in these vessels at this time. It did show some post traumatic changes on the right lateral chest wall , splenomegaly and possible pulmonary hypertension. Patent was admitted for possible CHF and to rule out Pulmonary embolism Home Medications Scheduled Cyanocobalamin (Vitamin B-12) (Vitamin B-12) 5,000 Mcg Tab.rapdis, 5,000 MCG PO DAILY, (Reported) Docusate Sodium (Colace) 100 Mg Capsule, 100 MG PO DAILY, (Reported) Ferrous Gluconate (Ferrous Gluconate) 324 Mg Tablet, 324 MG PO DAILY, (Reported) Levothyroxine Sodium (Levothyroxine Sodium) 100 Mcg Tab, 100 MCG PO DAILY, (Reported) Metoprolol Tartrate (Metoprolol Tartrate) 25 Mg Tablet, 25 MG PO BID, (Reported) Scheduled PRN Acetaminophen (Acetaminophen 8 Hour) 650 Mg Tablet.er, 650 MG PO TID PRN for PAIN, (Reported) Allergies Coded Allergies: cortisone (Verified Allergy, Unknown, 05/13/18) Past Medical History Medical History Marginal zone non-Hodgkin's lymphoma, 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, IgG lamda monoclonal gammopathy, Folic acid def anemia, Coronary artery disease and CABG 2012, arthritis, hypothyroidi sm, diverticulitis, macular degeneration, hyperlipidemia, obstructive sleep apnea on BIPAP, Periodic limb movement disorder, fatty liver, gallstones, endovascular repair for an abdominal aneurysm in June 2017, shoulder surgery, appendectomy and COPD, SCC of skin, Bilateral lower extremity venous stasis dermatitis, ACTINIC KERATOSES, SEBORRHEIC KERATOSES , LENTIGINES Family History Significant Family History: Cancer (Father NHL) Social History * Smoker: current smoker (pipe) Alcohol: Denies Drugs: denies A-FIB/CHADSVASC A-FIB History Current/History of A-Fib/PAF?: No Review of Systems Constitutional: Denies: Chills, Fever, Night Sweats Eyes: Denies: Pain ENT: Denies: Head Aches, Ear Pain, Dysphagia Skin: Denies: Rash, Lesions, Breakdown Pulmonary: Reports: Dyspnea, Cough Cardiovascular: Reports: Orthopnea, Edema; Denies: Chest Pain, Palpitations, Lt Headedness Gastrointestinal: Reports: Constipation; Denies: Nausea, Vomiting, Abdominal Pain, Diarrhea Genitourinary: Denies: Dysuria, Frequency, Incontinence, Retention Hematologic: Denies: Bruising, Bleeding Excessively Musculoskeletal: Reports: Other Symptoms (left buttaock pain) Neurological: Denies: Weakness, Numbness, Change in speech, Confusion Physical Examination General Exam: Positive: Alert, Cooperative, No Acute Distress, Other (tachypniec) Eye Exam: Positive: Conjunctiva & lids normal, EOMI, Other Eye Symptoms (legally blind); Negative: Sclera icteric ENT Exam: Positive: Atraumatic, Mucous membr. moist/pink, Pharynx Normal Neck Exam: Positive: Supple, JVD Chest Exam: Positive: Diminished, Other (bibasal crackles.) Heart Exam: Positive: Rate Normal, Regular Rhythm, Normal S1, Normal S2, Murmurs (systolic murmur present); Negative: Rubs Abdomen Exam: Positive: Normal bowel sounds, Soft; Negative: Tenderness, Hepatospenomegaly Extremity Exam: Positive: Edema (bipedal 1+ edema) Skin Exam: Positive: Nl turgor and temperature; Negative: Breakdown, Lesion Neuro Exam: Positive: Normal Speech, Strength at 5/5 X4 ext, Normal Tone Vital Signs Vital Signs Date Time Temp Pulse Resp B/P (MAP) Pulse Ox O2 Delivery O2 Flow Rate FiO2 01/22/19 16:03 63 18 94 01/22/19 16:00 111/55 (73) 01/22/19 10:21 96.2 Room Air Laboratory Data Labs 24H Laboratory Tests 2 01/22/19 11:17: Immature Granulocyte % (Auto) 1.1, Neutrophils (%) (Auto) 74.3H, Lymphocytes (%) (Auto) 14.9L, Monocytes (%) (Auto) 7.5H, Eosinophils (%) (Auto) 1.9, Basophils (%) (Auto) 0.3, Neutrophils # (Auto) 5.6, Lymphocytes # (Auto) 1.1L, Monocytes # (Auto) 0.6, Eosinophils # (Auto) 0.1, Basophils # (Auto) 0.0, Nucleated Red Blood Cells % (auto) 0.0, D-Dimer, Quantitative 3656.51H, Anion Gap 4L, Glomerular Filtration Rate 56.2, Calcium Level 8.9, C-Reactive Protein, Quanti tative 2.52H, WI-Znc-U-Type Natriuretic Peptide 2969H CBC/BMP Laboratory Tests 01/22/19 11:17 Assessment/Plan 78 year old male with PMH of Marginal zone non-Hodgkin's lymphoma, 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, IgG lamda monoclonal gammopathy, Folic acid def anemia, Coronary artery disease and CABG 2012, arthritis, hypothyroidism, diverticulitis, macular degeneration, hyperlipidemia, obstructive sleep apnea on BIPAP, Periodic limb movement disorder, fatty liver, gallstones, endovascular repair for an abdominal aneurysm in June 2017, shoulder surgery, appendectomy and COPD, SCC of skin, Bilateral lower extremity venous stasis dermatitis, ACTINIC KERATOSES, SEBORRHEIC KERATOSES , LENTIGINES presented to the ED with swelling of legs for 1 day and increased SOB for 4 to 5 days for which he had been sleeping in his recliner. He also complained of chronic pain in his left buttock so that he cannot sit on hard surfaces and always carries a cushion with him. He also said that when he says down flat he coughs a lot. He used to use a BIPAP machine but has not used it for a year as he was chocking on it. In the ED he had a d dimer done which was elevated so there was a suspicion for PE . He had dopplers of both legs which were negative for DVT. Next he had a CT angio of the chest which did not show any PE in the main pulmonary trunk ,right or left pulmonary arteries. No central or lobar pulmonary emboli seen. Most of the segmental arteries are visible and without filling defects, but the right lower lobe medial basal segment is not well depicted and other segments and lower lobes are difficult to evaluate due to some respiratory motion blur. One can neither diagnose or exclude pulmonary emboli in these vessels at this time. It did show some post traumatic changes on the right lateral chest wall , splenomegaly and possible pulmonary hypertension. Patent was admitted for possible CHF and to rule out Pulmonary embolism Possible CHF exacerbation will get echo will start on IV lasix bid fluid restriontion 1.8 liters, 2 gm sodium diet, I/O Elevated d carla there is no major central PE, no DvT. the probability of PE inthe right segmental region is small His elevated d dimer is probably due to his chronic medical problems If he does not improve with diuresis will get a VQ scan. ZE his creatinine is elvated from baseline will have to monitor for contrast nephropathy Hypothyroid continue synthroid CAD s/p cabg will continue metoprolol with hold parameters. Vit B 12 def will continue with supplementation. NHL patient used to be on rituximab for 2 years in his november visit with Dr Kearney it was told that he wont be able to tolerate any more rituximab as he is too week. Oncology referred him to palliative care they just had an appointment with them and they are reviewing the information . But they did not like the offer of cannabinoids that was given by the palliative care . Patient says those are drugs and he has always taught kids against drugs and he is not going to start using it now. Left hip pain he attributes to to a surgery he had for skin cancer will make tylenol available to him COnstipation continue colace. Thrombocytopeni with splenomegaly probably part of progressing NHL will continue to monitor if drops below 100 will stop heparin. Plan / VTE VTE Prophylaxis Ordered?: Yes BRISEIDA AGUILERA MD Jan 22, 2019 17:06
[2019-01-23] VITALS: BP 131/62
[2019-01-23 04:00] VITALS: BP 116/63
[2019-01-23 05:19] LABS: BASO % 0.4 % (0.0-1.0); EOS # 0.1 10^3/uL (0.0-0.5); EOS % 1.2 % (0.0-3.0); HEMATOCRIT 32.4 % (42.0-52.0); HEMOGLOBIN 10.2 g/dl (13.5-17.5); LYMPH % 10.9 % (24.0-44.0); MEAN CORPUSCULAR HEMOGLOBIN 29.2 pg (27.0-33.0); MEAN CORPUSCULAR HGB CONC 31.5 g/dl (32.0-36.5); MEAN CORPUSCULAR VOLUME 92.8 fl (80.0-96.0); MONO # 0.7 10^3/uL (0.0-0.8); MONO % 7.1 % (0.0-5.0); NEUTROPHILS # 7.6 10^3/uL (1.5-8.5); NEUTROPHILS % 79.8 % (36.0-66.0); PLATELET COUNT, AUTOMATED 106 10^3/uL (150-450); RED BLOOD COUNT 3.49 10^6/uL (4.30-6.10); WHITE BLOOD COUNT 9.5 10^3/uL (4.0-10.0)
[2019-01-23] MEDS: LEVOTHYROXINE 100MCG TABLET (0.1MG) PO SCH (05:27)
[2019-01-23 05:44] LABS: CALCIUM LEVEL 8.6 MG/DL (8.8-10.2); CREATININE FOR GFR 1.61 MG/DL (0.70-1.30); GLOMERULAR FILTRATION RATE 44.3 (>42); POTASSIUM SERUM 4.4 MEQ/L (3.5-5.1)
[2019-01-23 06:49] LABS: MAGNESIUM LEVEL 1.8 MG/DL (1.8-2.4)
[2019-01-23 08:00] VITALS: BP 121/67
[2019-01-23] MEDS: DOCUSATE SODIUM 100 MG CAP PO SCH (09:00)
[2019-01-23] MEDS ORDERED: FUROSEMIDE 40 MG/4 ML VIAL (J1940) IV SCH ×2 (09:00)
[2019-01-23] MEDS: HEPARIN SOD (PORCINE) 5000 UNITS/ML VIAL SC SCH ×2 (09:01→20:39)
[2019-01-23] MEDS: METOPROLOL TART 25 MG TABLET PO SCH ×2 (09:01→20:38)
[2019-01-23] MEDS: FERROUS GLUCONATE 324 MG TAB PO SCH (09:01)
[2019-01-23 12:00] VITALS: BP 124/58
[2019-01-23 16:00] VITALS: BP 127/67
--- NOTE | 2019-01-23 16:40 | IPNPDOC ---
Subjective Date Seen The patient was seen on 01/23/19. Subjective Chief Complaint/HPI Says feeling better today. says slept in the bed and had a better sleep in many days. No fever or chills, No cough today. Says breathing is better. Objective Physical Examination General Exam: Positive: Alert, Cooperative, No Acute Distress, Other (tachypniec) Eye Exam: Positive: Conjunctiva & lids normal, EOMI, Other Eye Symptoms (legally blind); Negative: Sclera icteric ENT Exam: Positive: Atraumatic, Mucous membr. moist/pink, Pharynx Normal Neck Exam: Positive: Supple, JVD Chest Exam: Positive: Diminished, Other (bibasal crackles.) Heart Exam: Positive: Rate Normal, Regular Rhythm, Normal S1, Normal S2, Murmurs (systolic murmur present); Negative: Rubs Abdomen Exam: Positive: Normal bowel sounds, Soft; Negative: Tenderness, Hepatospenomegaly Extremity Exam: Positive: Edema (bipedal 1+ edema) Skin Exam: Positive: Nl turgor and temperature; Negative: Breakdown, Lesion Neuro Exam: Positive: Normal Speech, Strength at 5/5 X4 ext, Normal Tone Assessment /Plan Assessment 78 year old male with PMH of Marginal zone non-Hodgkin's lymphoma, 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, IgG lamda monoclonal gammopathy, Folic acid def anemia, Coronary artery disease and CABG 2012, arthritis, hypothyroidism, diverticulitis, macular degeneration, hyperlipidemia, obstructive sleep apnea on BIPAP, Periodic limb movement disorder, fatty liver, gallstones, endovascular repair for an abdominal aneurysm in June 2017, shoulder surgery, appendectomy and COPD, SCC of skin, Bilateral lower extremity venous stasis dermatitis, ACTINIC KERATOSES, SEBORRHEIC KERATOSES , LENTIGINES presented to the ED with swelling of legs for 1 day and increased SOB for 4 to 5 days for which he had been sleeping in his recliner. He also complained of chronic pain in his left buttock so that he cannot sit on hard surfaces and always carries a cushion with him. He also said that when he says down flat he coughs a lot. He used to use a BIPAP machine but has not used it for a year as he was chocking on it. In the ED he had a d dimer done which was elevated so there was a suspicion for PE . He had dopplers of both legs which were negative for DVT. Next he had a CT angio of the chest which did not show any PE in the main pulmonary trunk ,right or left pulmonary arteries. No central or lobar pulmonary emboli seen. Most of the segmental arteries are visible and without filling defects, but the right lower lobe medial basal segment is not well depicted and other segments and lower lobes are difficult to evaluate due to some respiratory motion blur. One can neither diagnose or exclude pulmonary emboli in these vessels at this time. It did show some post traumatic changes on the right lateral chest wall , splenomegaly and possible pulmonary hypertension. Patent was admitted for possible CHF and to rule out Pulmonary embolism Possible CHF exacerbation will get echo continue lasix IV daily. fluid restriction 1.8 liters, 2 gm sodium diet, I/O Elevated d carla there is no major central PE, no DVT. the probability of PE inthe right segmental region is small His elevated d dimer is probably due to his chronic medical problems VQ scan tomorrow. ZE his creatinine is elevated from baseline will have to monitor for contrast nephropathy creatinine is higher today could be due to contrast nephropathy. will decrease lasix. Hypothyroid continue synthroid CAD s/p cabg will continue metoprolol with hold parameters. Vit B 12 def will continue with supplementation. NHL patient used to be on rituximab for 2 years in his november visit with Dr Kearney it was told that he wont be able to tolerate any more rituximab as he is too week. Oncology referred him to palliative care they just had an appointment with them and they are reviewing the information . But they did not like the offer of cannabinoids that was given by the palliative care . Patient says those are drugs and he has always taught kids against drugs and he is not going to start using it now. Left hip pain he attributes to to a surgery he had for skin cancer will make tylenol available to him Constipation continue colace. Thrombocytopenia with splenomegaly probably part of progressing NHL will continue to monitor if drops below 100 will stop heparin. Plan/VTE VTE Prophylaxis Ordered?: Yes VS, I&O, 24H, Fishbone Vital Signs/I&O Vital Signs Date Time Temp Pulse Resp B/P (MAP) Pulse Ox O2 Delivery O2 Flow Rate FiO2 01/23/19 12:00 97.7 71 17 124/58 (80) 95 Room Air I&O- Last 24 Hours up to 6 AM 01/23/19 06:00 Intake Total 360 ml Output Total 1400 ml Balance -1040 ml Laboratory Data 24H LABS Laboratory Tests 2 01/23/19 05:04: Immature Granulocyte % (Auto) 0.6, Neutrophils (%) (Auto) 79.8H, Lymphocytes (%) (Auto) 10.9L, Monocytes (%) (Auto) 7.1H, Eosinophils (%) (Auto) 1.2, Basophils (%) (Auto) 0.4, Neutrophils # (Auto) 7.6, Lymphocytes # (Auto) 1.0L, Monocytes # (Auto) 0.7, Eosinophils # (Auto) 0.1, Basophils # (Auto) 0.0, Nucleated Red Blood Cells % (auto) 0.0, Anion Gap 6L, Glomerular Filtration Rate 44.3, Calcium Level 8.6L, Magnesium Level 1.8, MB-Hrq-[id number]-Type Natriuretic Peptide 3214H CBC/BMP Laboratory Tests 01/23/19 05:04 BRISEIDA AGUILERA MD Jan 23, 2019 16:40
[2019-01-23] MEDS: ACETAMINOPHEN 500 MG TAB PO PRN (16:49)
[2019-01-23 20:00] VITALS: BP 102/51
[2019-01-24] VITALS (8 sets, daily range): BP systolic 86–125; BP diastolic 50–65
[2019-01-24] MEDS: ACETAMINOPHEN 500 MG TAB PO PRN ×2 (03:27→15:56)
[2019-01-24] MEDS: LEVOTHYROXINE 100MCG TABLET (0.1MG) PO SCH (05:45)
[2019-01-24 05:46] LABS: BASO % 0.4 % (0.0-1.0); EOS # 0.1 10^3/uL (0.0-0.5); EOS % 0.8 % (0.0-3.0); HEMOGLOBIN 9.8 g/dl (13.5-17.5); LYMPH % 11.1 % (24.0-44.0); MEAN CORPUSCULAR HEMOGLOBIN 29.3 pg (27.0-33.0); MEAN CORPUSCULAR HGB CONC 31.6 g/dl (32.0-36.5); MEAN CORPUSCULAR VOLUME 92.8 fl (80.0-96.0); MONO # 0.6 10^3/uL (0.0-0.8); MONO % 6.6 % (0.0-5.0); NEUTROPHILS # 7.2 10^3/uL (1.5-8.5); NEUTROPHILS % 80.5 % (36.0-66.0); PLATELET COUNT, AUTOMATED 106 10^3/uL (150-450); RED BLOOD COUNT 3.34 10^6/uL (4.30-6.10); WHITE BLOOD COUNT 8.9 10^3/uL (4.0-10.0)
[2019-01-24 05:53] LABS: CALCIUM LEVEL 8.4 MG/DL (8.8-10.2); CREATININE FOR GFR 2.06 MG/DL (0.70-1.30); GLOMERULAR FILTRATION RATE 33.3 (>42)
[2019-01-24] MEDS: DOCUSATE SODIUM 100 MG CAP PO SCH (09:41)
[2019-01-24] MEDS: FERROUS GLUCONATE 324 MG TAB PO SCH (09:42)
[2019-01-24] MEDS: HEPARIN SOD (PORCINE) 5000 UNITS/ML VIAL SC SCH ×2 (09:42→20:57)
[2019-01-24] MEDS: METOPROLOL TART 25 MG TABLET PO SCH ×2 (09:42→20:11)
--- NOTE | 2019-01-24 10:25 | IPNPDOC ---
Subjective Date Seen The patient was seen on 01/24/19. Subjective Chief Complaint/HPI Patient noted sleeping comfortably in bed in almost flat position. Say he feels the best he has felt in several weeks. Denies any cough or phlegm, denies any SOB , denies any leg swelling. Objective Physical Examination General Exam: Positive: Alert, Cooperative, No Acute Distress, Other (tachypnie c) Eye Exam: Positive: Conjunctiva & lids normal, EOMI, Other Eye Symptoms (le gally blind); Negative: Sclera icteric ENT Exam: Positive: Atraumatic, Mucous membr. moist/pink, Pharynx Normal Neck Exam: Positive: Supple, JVD Chest Exam: Positive: Diminished, Other (bibasal crackles.) Heart Exam: Positive: Rate Normal, Regular Rhythm, Normal S1, Normal S2, Murmurs (systolic murmur present); Negative: Rubs Abdomen Exam: Positive: Normal bowel sounds, Soft; Negative: Tenderness, Hepatospenomegaly Extremity Exam: Positive: Edema (bipedal 1+ edema) Skin Exam: Positive: Nl turgor and temperature; Negative: Breakdown, Lesion Neuro Exam: Positive: Normal Speech, Strength at 5/5 X4 ext, Normal Tone Assessment /Plan Assessment 78 year old male with PMH of Marginal zone non-Hodgkin's lymphoma, 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, IgG lamda monoclonal gammopathy, Folic acid def anemia, Coronary artery disease and CABG 2012, arthritis, hypothyroidism, diverticulitis, macular degeneration, hyper lipidemia, obstructive sleep apnea on BIPAP, Periodic limb movement disorder, fatty liver, gallstones, endovascular repair for an abdominal aneurysm in June 2017, shoulder surgery, appendectomy and COPD, SCC of skin, Bilateral lower extremity venous stasis dermatitis, ACTINIC KERATOSES, SEBORRHEIC KERATOSES , LENTIGINES presented to the ED with swelling of legs for 1 day and increased SOB for 4 to 5 days for which he had been sleeping in his recliner. He also complained of chronic pain in his left buttock so that he cannot sit on hard surfaces and always carries a cushion with him. He also said that when he says down flat he coughs a lot. He used to use a BIPAP machine but has not used it fo r a year as he was chocking on it. In the ED he had a d dimer done which was elevated so there was a suspicion for PE . He had dopplers of both legs which were negative for DVT. Next he had a CT angio of the chest which did not show any PE in the main pulmonary trunk ,right or left pulmonary arteries. No central or lobar pulmonary emboli seen. Most of the segmental arteries are visible and without filling defects, but the right lower lobe medial basal segment is not well depicted and other segments and lower lobes are difficult to evaluate due to some respiratory motion blur. One can neither diagnose or exclude pulmonary emboli in these vessels at this time. It did show some post traumatic changes on the right lateral chest wall , splenomegaly and possible pulmonary hypertension. Patent was admitted for possible CHF and to rule out Pulmonary embolism Possible CHF exacerbation will get echo fluid restriction 1.8 liters, 2 gm sodium diet, I/O Lasix stopped as creatinine rising rapidly. Elevated d carla there is no major central PE, no DVT. the probability of PE inthe right segmenta l region is small His elevated d dimer is probably due to his chronic medical problems VQ scan tomorrow. ZE possibly due to contrast nephropathy and diuresis. lasix stopped. will give a small bolus of fluid. Hypothyroid continue synthroid CAD s/p cabg will continue metoprolol with hold parameters. Vit B 12 def will continue with supplementation. NHL patient used to be on rituximab for 2 years in his november visit with Dr Kearney it was told that he wont be able to tolerate any more rituximab as he is too week. Oncology referred him to palliative care they just had an appointment with them and they are reviewing the information . But they did not like the offer of cannabinoids that was given by the palliative care . Patient says those are drugs and he has always taught kids against drugs and he is not going to start using it now. Left hip pain he attributes to to a surgery he had for skin cancer will make tylenol available to him Constipation continue colace. Thrombocytopenia with splenomegaly probably part of progressing NHL will continue to monitor if drops below 100 will stop heparin. Plan/VTE VTE Prophylaxis Ordered?: Yes VS, I&O, 24H, Fishbone Vital Signs/I&O Vital Signs Date Time Temp Pulse Resp B/P (MAP) Pulse Ox O2 Delivery O2 Flow Rate FiO2 01/24/19 09:42 72 01/24/19 07:40 96.8 20 121/52 (75) 95 Room Air I&O- Last 24 Hours up to 6 AM 01/24/19 06:00 Intake Total 1620 ml Output Total 400 ml Balance 1220 ml Laboratory Data 24H LABS Laboratory Tests 2 01/24/19 05:05: Immature Granulocyte % (Auto) 0.6, Neutrophils (%) (Auto) 80.5H, Lymphocytes (%) (Auto) 11.1L, Monocytes (%) (Auto) 6.6H, Eosinophils (%) (Auto) 0.8, Basophils (%) (Auto) 0.4, Neutrophils # (Auto) 7.2, Lymphocytes # (Auto) 1.0L, Monocytes # (Auto) 0.6, Eosinophils # (Auto) 0.1, Basophils # (Auto) 0.0, Nucleated Red Blood Cells % (auto) 0.0, Anion Gap 7L, Glomerular Filtration Rate 33.3L, Calcium Level 8.4L CBC/BMP Laboratory Tests 01/24/19 05:05 BRISEIDA AGUILERA MD Jan 24, 2019 10:25
[2019-01-24] MEDS: SODIUM CHLORIDE 0.9% 1000ML IV ONE ×2 (10:30→11:20)
--- NOTE | 2019-01-24 13:20 | REP ---
V/Q SCAN: Following the intravenous administration of 5.4 mCi of technetium-99m tagged MAA and the inhalation of 1.0 mCi of technetium-99m DTPA aerosol multiple images of the lungs are obtained in various projections. Scattered lower lung perfusion defects are visualized bilaterally with larger ventilation defects. I see no areas of V/Q mismatch. IMPRESSION: Low probability of pulmonary embolism. Electronically Signed by Rangel Kunz MD 01/24/2019 03:52 P
[2019-01-24] MEDS: SLF 3 ML SYR IV SCH ×2 (14:00→20:57)
[2019-01-24] MEDS ORDERED: NS 250 ML IV ONE (15:00)
[2019-01-24] MEDS ORDERED: SLF 3 ML SYR IV PRN (15:00)
--- NOTE | 2019-01-24 16:16 | ECHO ---
DATE OF STUDY: 01/24/2019 REFERRING PHYSICIAN: Dr. Brenda Way INDICATION: Heart failure, unspecified. HEIGHT: 191 cm WEIGHT: 87 kg 2-D MEASUREMENTS: Ventricular septum: 1.13 cm Posterior wall: 1.31 cm Left ventricle diastole: 5.9 cm Aortic root: 3.3 cm Left atrium: 4.5 cm Left atrial volume index: 33 Inferior vena cava: 1.7 cm with more than 50% respiratory variation. DOPPLER MEASUREMENTS: Moderate aortic stenosis. Very mild aortic regurgitation. Peak aortic valve velocity: 311 cm/s Peak aortic valve gradient: 39 mmHg Mean aortic valve gradient: 23 mmHg LVOT velocity: 80.3 cm/s Very mild mitral regurgitation. Mitral E velocity: 71.6 cm/s Mitral A velocity: 67.4 cm/s Mitral deceleration time: 257 ms Mild tricuspid regurgitation. Estimated right ventricle systolic pressure 50-55 mmHg assuming an atrial pressure of 5-10 mmHg. Mild pulmonic regurgitation. MITRAL ANNULAR TISSUE DOPPLER: E prime lateral: 10.2 cm/s E prime septal: 8.4 cm/s DESCRIPTION: Rhythm was sinus with right bundle branch block morphology. Image quality was adequate. No pericardial effusion. This was a 2-D, M-mode, color flow Doppler and pulse waved Doppler examination and included mitral annular tissue Doppler. CONCLUSIONS: 1. Moderate focal thickening and focal calcific deposits of a 3-cusp aortic valve. Moderate reduction in aortic cusp mobility. Moderate aortic stenosis with peak velocity across the aortic valve of 311 cm/s and mean aortic valve gradient of 23 mmHg. Aortic valve area calculation was not valid due to suboptimal angulation of the pulse wave Doppler of LVOT. Very mild aortic regurgitation. 2. Mild dilated left ventricle with borderline left ventricular hypertrophy. Normal LV systolic function. Left ventricular ejection fraction (LVEF) 63% (3D). Normal LV diastolic function. 3. Mild left atrial dilatation by left atrial volume index. 4. Suggestive of moderate elevation of estimated right ventricle systolic pressure (50-55 mmHg). Mild tricuspid regurgitation. Normal central venous pressure (5-10 mmHg).
[2019-01-24 21:55] LABS: MAGNESIUM LEVEL 1.8 MG/DL (1.8-2.4)
[2019-01-24] MEDS ORDERED: FUROSEMIDE 20 MG/2 ML VIAL (J1940) IV ONE (22:00)
[2019-01-25] VITALS: BP 96/62
[2019-01-25] MEDS: ACETAMINOPHEN 500 MG TAB PO PRN ×2 (01:06→13:34)
[2019-01-25] MEDS ORDERED: FLEET OIL RETENTION ENEMA PR PRN (02:00)
[2019-01-25] MEDS ORDERED: SIMETHICONE 80 MG CHEW TAB PO PRN (02:00)
[2019-01-25] MEDS: DOCUSATE SODIUM 100 MG CAP PO SCH ×2 (02:13→08:34)
[2019-01-25] MEDS: MIRALAX *UNIT DOSE* 17GM PACKET PO SCH ×2 (02:13→08:33)
[2019-01-25 04:00] VITALS: BP 98/60
[2019-01-25] MEDS: LEVOTHYROXINE 100MCG TABLET (0.1MG) PO SCH (05:06)
[2019-01-25] MEDS: SLF 3 ML SYR IV SCH ×2 (05:06→11:57)
[2019-01-25 05:08] LABS: BASO % 0.3 % (0.0-1.0); EOS # 0.1 10^3/uL (0.0-0.5); EOS % 1.5 % (0.0-3.0); HEMATOCRIT 29.9 % (42.0-52.0); HEMOGLOBIN 9.2 g/dl (13.5-17.5); LYMPH # 1.1 10^3/uL (1.5-5.0); LYMPH % 14.5 % (24.0-44.0); MEAN CORPUSCULAR HEMOGLOBIN 28.9 pg (27.0-33.0); MEAN CORPUSCULAR HGB CONC 30.8 g/dl (32.0-36.5); MONO # 0.4 10^3/uL (0.0-0.8); MONO % 5.9 % (0.0-5.0); NEUTROPHILS # 5.5 10^3/uL (1.5-8.5); NEUTROPHILS % 76.3 % (36.0-66.0); PLATELET COUNT, AUTOMATED 101 10^3/uL (150-450); RED BLOOD COUNT 3.18 10^6/uL (4.30-6.10); WHITE BLOOD COUNT 7.3 10^3/uL (4.0-10.0)
[2019-01-25 05:27] LABS: CALCIUM LEVEL 8.3 MG/DL (8.8-10.2); CREATININE FOR GFR 1.91 MG/DL (0.70-1.30); GLOMERULAR FILTRATION RATE 36.4 (>42)
[2019-01-25 08:00] VITALS: BP 105/58
--- NOTE | 2019-01-25 08:28 | REP ---
Portable chest x-ray: Single view. History: Shortness of breath. Comparison study January 22, 2019. Findings: Monitoring electrodes are seen. Median sternotomy wires are noted. Heart is borderline unchanged. Pulmonary vasculature is not increased. There are granulomatous calcifications in the left base. Pleural angles are sharp. No infiltrate is seen. Impression: No acute disease. Electronically Signed by Tye Dillard MD 01/25/2019 08:19 A
[2019-01-25] MEDS ORDERED: IPRATROPIUM 0.5MG/ALBUTEROL 2.5MG INH SOL UD 3ML (DUONEB)(J7620) NEB PRN (08:30)
[2019-01-25] MEDS ORDERED: IPRATROPIUM 0.5MG/ALBUTEROL 2.5MG INH SOL UD 3ML (DUONEB)(J7620) NEB ONE (08:30)
[2019-01-25 08:34] VITALS: BP 105/58
[2019-01-25] MEDS: HEPARIN SOD (PORCINE) 5000 UNITS/ML VIAL SC SCH (08:34)
[2019-01-25] MEDS: METOPROLOL TART 25 MG TABLET PO SCH (08:34)
[2019-01-25] MEDS: FERROUS GLUCONATE 324 MG TAB PO SCH (08:34)
[2019-01-25] MEDS ORDERED: MIRALAX *UNIT DOSE* 17GM PACKET PO SCH (09:00)
[2019-01-25 11:08] LABS: PERCENT SATURATION 8.8 % (19.7-50.0)
[2019-01-25 12:00] VITALS: BP_SYST 109; BP_SYST 92; BP_DIAS 54; BP_DIAS 60
[2019-01-25] MEDS ORDERED: IPRATROPIUM 0.5MG/ALBUTEROL 2.5MG INH SOL UD 3ML (DUONEB)(J7620) NEB SCH (12:00)
[2019-01-25] MEDS ORDERED: LASI40TA9 PO (13:24)
--- NOTE | 2019-01-25 15:50 | DSES ---
DATE OF ADMISSION: 01/22/2019 DATE OF DISCHARGE: CONSULTANTS: Dr. Andrez Larry, nephrology PRIMARY DISCHARGE DIAGNOSES: 1. Diastolic congestive heart failure (CHF). 2. Moderate aortic stenosis. 3. Acute on chronic renal failure, stage III. 4. Hypothyroidism. 5. Coronary artery disease. 6. Coronary artery bypass graft (CABG). 7. Vitamin B12 deficiency. 8. Non Hodgkin's lymphoma, status post rituximab. 9. Cancer cachexia. 10. Chronic left hip pain. 11. History of skin cancer. 12. Chronic constipation. 13. Thrombocytopenia with splenomegaly due to progressive non Hodgkin's lymphoma. Per Dr. Larry's instructions Lasix 40 mg daily The patient refused cardiology evaluation for moderate CHF management and has decided to follow with Dr. Zavaleta in [place]. DISCHARGE MEDICATIONS: - acetaminophen 650 mg three times a day as needed for pain - B12 1000 mcg daily - Colace 100 mg daily - ferrous gluconate 324 mg daily - levothyroxine 100 mcg daily - metoprolol 25 mg twice a day DISCHARGE INSTRUCTIONS: The patient is to monitor his breathing, followup with his director of accounting and set up mechanic within 5 to 10 days of hospital discharge and primary care provider within 1 week of hospital discharge. HOSPITAL COURSE: 78-year-old male who presented to the emergency room with shortness of breath, lower extremity edema and generalized weakness. The patient has a known history of non Hodgkin's lymphoma stage IV, status post rituximab, IgG and lambda monoclonal gammopathy, obstructive sleep apnea on chronic bilevel positive airway pressure (BIPAP) and CABG in 2012. The patient has been sleeping in his recliner for the past 4 to 5 days. BiPAP machine was used but felt like there was no significant improvement. D-dimer was elevated with suspicion of pulmonary embolism with negative lower extremity Doppler for DVT. CT angiogram of the chest did not show any pulmonary embolism in the main pulmonary trunk with no central locular pulmonary embolism seen. Most of the segmental arteries are visible without filling defects. The patient was sent for a V/Q scan, which showed the possibility of a pulmonary embolism. He was admitted for possible CHF exacerbation and was put on Lasix IV twice a day with 1.8 liter fluid restriction and 2-gram sodium diet. The patient's admission weight was 86.82 kg with a peak of 87.2 kg and discharge weight of 85.8 kg. The patient had a creatinine that remained stable with a creatinine of 1.3 on admission and discharge of 1.91. Repeat chest x-ray on 01/25/2019 to further evaluate the patient's heart failure showed no acute disease. The patient passed a home safety evaluation and wanted to be discharged home. However, due to his moderate aortic stenosis, we recommended Dr. Gomez to consult on the patient for adjustment of his medications. The patient did not want to stay for cardiology referral. Dr. Larry did evaluate him for his chronic kidney disease and CHF fluid management and recommended 40 mg of Lasix daily and outpatient followup in the office. PHYSICAL EXAMINATION: On discharge: Temperature 97.9, pulse 64, respiratory rate 18, blood pressure 109/54, 95% on room air. GENERAL: The patient is awake, alert, oriented to person, place and time. He is anicteric with no jaundice. No jugular venous distention (JVD) or thyromegaly. LUNGS: Diminished but clear to auscultation. No wheezing or rales. HEART: S1, S2. Sinus rhythm with premature ventricle complexes. ABDOMEN: Soft, nontender, nondistended. EXTREMITIES: Trace edema. LABORATORY DATA: White count 7.3, hemoglobin 9.2, hematocrit 29, platelet count 101. Sodium 136, potassium 4, chloride 104, bicarbonate 26, BUN 51, creatinine 1.9, glucose of 127. Iron 60, TIBC 181. BNP was 3214. IMAGING STUDIES: Vascular ultrasound of the lower extremities showed no deep vein thrombosis (DVT) in bilateral lower extremities. CT angiogram of the chest on 01/22/2019 showed splenomegaly, no pulmonary embolism. Chronic posttraumatic changes in the ribs and right mid to posterolateral aspect with pleural thickening. Left lower lobe 6 mm nodule int he deep sulcus. Splenomegaly with the spleen only seen in part. No ascites in the upper abdomen. Time spent on discharge: 30 minutes. MTDD
== END 2019-01-25 15:58 | disposition home or self-care (01) | DRG 292 ==
LOC: M ED 10:19 → M ED INP 17:46 → M PCU 19:28
PROVIDERS: ADMIT Internal Medicine Nephrology; ATTEND General Practice
DX: I50.33 Acute on chronic diastolic (congestive) heart failure (principal); C85.87 Other specified types of non-Hodgkin lymphoma, spleen; N17.9 Acute kidney failure, unspecified; R64 Cachexia; D47.2 Monoclonal gammopathy; D52.9 Folate deficiency anemia, unspecified; E03.9 Hypothyroidism, unspecified; H35.30 Unspecified macular degeneration; E78.5 Hyperlipidemia, unspecified; G47.33 Obstructive sleep apnea (adult) (pediatric); G47.61 Periodic limb movement disorder; I35.0 Nonrheumatic aortic (valve) stenosis; K76.0 Fatty (change of) liver, not elsewhere classified; K80.20 Calculus of gallbladder without cholecystitis without obstruction; J44.9 Chronic obstructive pulmonary disease, unspecified; I87.2 Venous insufficiency (chronic) (peripheral); L57.0 Actinic keratosis; L82.1 Other seborrheic keratosis; F17.290 Nicotine dependence, other tobacco product, uncomplicated; E53.8 Deficiency of other specified B group vitamins; K59.00 Constipation, unspecified; D69.6 Thrombocytopenia, unspecified; N18.3 Chronic kidney disease, stage 3 (moderate); M25.552 Pain in left hip; K59.09 Other constipation; Z85.828 Personal history of other malignant neoplasm of skin; Z90.49 Acquired absence of other specified parts of digestive tract; Z88.8 Allergy status to other drugs, medicaments and biological substances; Z79.899 Other long term (current) drug therapy